=== PATIENT | male | born 1995 ===

== ENCOUNTER 2024-11-19 19:20 | Emergency (ER) | payer SELFPAY ==
--- OUTSIDE RECORDS SUMMARY | 2023-09-20 09:00 | XMS_ITS | Continuity of Care Document ---
Author Organization [facility] ic Address [address] [place] [address] [place] [address] Phone Care Team Providers Care Manager Chemistry Name Role Phone Rajan Hodge NP Unavailable Unavailable Procedures Procedure Date VOID ENCOUNTER Advance Directives Directive Yes / No Effective Date File Name No Information Encounters Encounter Description Practice Location Reason(s) For Visit Diagnoses Date Provider Providers Copied on Encounter [facility], [address] [place] [address], [id number], [place] tel:[phone] [facility] No Information Naveen Tolentino. [address], [place], [place], [id number], [place]. tel:[phone] Family History Family Member Type Diagnosis Age At Onset No Information Immunizations Vaccine Date Status Comments Td (adult), adsorbed administered Source: Other Registry Td (adult), adsorbed administered Source: Other Registry HepA-Ped 2 Dose administered Source: [facility] Varicella administered Source: Other R egistry HepB-Peds administered Source: Other R egistry Hib, NOS administered Source: Other R egistry DTP administered Source: Other R egistry MMR administered Source: Other R egistry Polio-Oral administered Source: Other R egistry Hib, NOS administered Source: Other R egistry DTP administered Source: Other R egistry Polio-Inject administered Source: Other R egistry HepB-Peds administered Source: Other R egistry Hib, NOS administered Source: Other R egistry DTP administered Source: Other R egistry HepB-Peds administered Source: Other R egistry Polio-Oral administered Source: Other R egistry Hib, NOS administered Source: Other R egistry DTP administered Source: Other R egistry Payers Payer name Insurance type Covered democrat ID Authoriza tion(s) No Information Social History Type Description Quantity Date Captured Comments Alcohol Use Details Unknown Caffeine Use Details Unknown Tobacco Use Status No Information Smoking Status No Information Sex Male Sexual Orientation Straight or heterosexual Aug Gender Identity Male Chief Complaint And Reason For Visit No Information Reason For Referral Reason For Referral No Information Plan Of Treatment Date Type Action Status Goal ACEs. Due on due Goal Lipid panel (17 to 76 years) . Due on due Goal HIV Screen. Due on due Goal SHA (>=18 years). Due on Aug due Goal Depression screening. Due on due History Of Present Illness Encounter Date Complaint History Of Prese nt Illness No Information Functional Status Date Functional Assessmen t No Information Instructions Date Instruction Additional Infor mation No Information Assessments Type Assessment Date No Information Patient Care Teams Name Effective Dates (start - stop) Status Members No Information
[2024-11-19 19:24] VITALS: BP 125/89; PULSE 103; RESP 16; TEMP 36.9; O2SAT 98; BMI 32.5
--- NOTE | 2024-11-19 19:26 | ED_ITS ---
HPI - General Adult General: Chief complaint: Wound/Laceration Stated complaint: ARM LAC Time Seen by Provider: 11/19/24 19:21 Source: patient and police Mode of arrival: ambulatory Limitations: no limitations History of Present Illness: 29-year-old male is here with police pat ient states he punched through a glass and lacerated his left elbow. He does have a 3 cm laceration over the anterior aspect of his elbow no bleeding at this time denies any decreased sensation or strength in his hand denies any other injuries unsure when his last tetanus was. Associated symptoms: Deny chest pain, dyspnea, headache(s), nausea, rash or vomiting Related Data Allergies Allergy/AdvReac Type Severity Reaction Status Date / Time No Known Allergies Allergy Verified 11/19/24 19:26 Review of Systems Const: Denies: fever(s), chills, body aches or change in appetite ENMT: Denies: throat pain or dental pain Card: Denies: chest pain Resp: Denies: dyspnea GI: Denies: abdominal pain, nausea, vomiting or diarrhea Musc: Denies: neck pain or back pain Skin/Breast: Denies: rash Neuro: Denies: headache(s) Physical Exam Const: COMMON NORMALS: no acute distress, patient oriented x3 and healthy appearing HENMT: COMMON NORMALS: normocephalic and atraumatic HEAD & SCALP: normocephalic and atraumatic Eye: COMMON NORMALS: conjunctivae normal CONJUNCTIVA: Yes conjunctivae normal Neck/C-Spine: COMMON NORMALS: full ROM and supple Chest: COMMONS NORMALS: normal inspection of the chest Resp: COMMON NORMALS: normal respiratory effort Cardio: COMMON NORMALS: regular rate RATE: regular rate Extremity: NARRATIVE EXTREMITY EXAM: 3 cm laceration anterior aspect of the r ight elbow no tendon damage no arterial involvement no bleeding at this time has full sensation strength to distal extremity Neuro: COMMON NORMALS: patient oriented x3, moves all extremities and no focal motor deficits Psych: COMMON NORMALS: mental status grossly normal, Normal thought process present and cooperative THOUGHT PROCESS: Normal thought process present Skin: COMMON NORMALS: no rashes or lesions noted and no wounds GENERAL SKIN EXAM: no rashes or lesions noted Procedures Laceration Laceration 1: Site: upper extremity Side (If applicable): right Size (cm): 3 Description: linear Depth: simple, single layer Local Anesthetic: lidocaine 1% Amount of anesthesia used (mL): 8 Pre-repair: wound explored, irrigated extensively and deep structures intact Skin layer closed with: nylon Size (cm): 4-0 Number of sutures: 3 Technique: simple, interrupted Course Vital Signs: Vital signs: Vital Signs Temperature 98.4 F 11/19/24 19:24 Pulse Rate 103 H 11/19/24 19:24 Respiratory Rate 16 11/19/24 19:24 Blood Pressure 125/89 11/19/24 19:24 Pulse Oximetry 98 11/19/24 19:24 Oxygen Delivery Me thod Room Air 11/19/24 19:24 MDM - General Adult Medical Decision Making Patient presents for laceration to his right elbow no foreign body noted did repair the laceration he is have sutures removed in 10 days. Medical Records I reviewed the patient's medical records. XR interpretation done by ED provider, pending radiology final review ED provider radiology interpretation(s): xr elbow/ no fb Discharge Plan Discharge Patient Disposition: Home Clinical Impression: Laceration Condition: Stable Discharge Orders: Discharge ED (Routine); Ordered 11/19/24 Ordered By: Trupti Dickerson Discharge Diet: Advance as tolerated Discharge Activity: Resume usual activity Patient Instructions: Care For Your Stitches (ED), Laceration (ED) Activity Restrictions/Additional Instructions: suture removal in 10 days Print Language: Ecuadorean Coding Level of Care Code ED Post Doctoral Fellow for Noelle Schneider
--- NOTE | 2024-11-19 19:26 | XRR_ITS ---
PROCEDURE INFORMATION: Exam: XR Right Elbow Exam date and time: 11/19/2024 7:31 PM Age: 29 years old Clinical indication: Injury or trauma; Other: Cut RT elbow possible glass in elbow; Laceration; Right; Additional info: Fb TECHNIQUE: Imaging protocol: Radiologic exam of the right elbow. Views: 1 or 2 views. COMPARISON: No relevant prior studies available. FINDINGS: Bones/joints: No fracture or dislocation. No joint effusion. Soft tissues: Skin injury noted but no radiopaque foreign body. XR/XR elbow RT 2V [id number] IMPRESSION: Soft tissue injury with no radiopaque foreign body. No acute osseous findings.
[2024-11-19] MEDS: tetanus-dipt-pertussis 0.5 mL SDV IM (19:28)
[2024-11-19 19:47] VITALS: BP 125/89; PULSE 96; RESP 16; O2SAT 99
== END 2024-11-19 19:43 | disposition home or self-care (01) ==
PROVIDERS: Emergency Provider Emergency Medicine
DX: S51.011A Laceration without foreign body of right elbow, initial encounter (principal); W22.8XXA Striking against or struck by other objects, initial encounter
CPT/HCPCS: 12002; 73070; 90471; 90715; 99283